=== PATIENT | male | born 1975 | race Caucasian/White ===

== ENCOUNTER 2016-11-09 15:26 | Emergency (ER) | payer OTHER ==
--- NOTE | ~2016-11-09 | CR72 ---
[facility]. [facility] A Service of [facility] & [facility] RADIOLOGY TEXT RESULTS PATIENT: TIKI MORALES LOCATION: SED : 73 UNIT #: [id number] AGE: [address]: Idalia Tejada MD SEX: M ORDER DR: [id number] [place] [id number] E MR#: [id number] Acc #: [id number] NAME: TIKI MORALES : 1975 SEX: M STUDY DATE/TIME: 11/09/2016 16:27 UNIT: SED ROOM: STUDY DESCRIPTION: CR Chest Single View Portable Attending Physician: Idalia Tejada M.D. Ordering Physician: Idalia Tejada M.D. Primary Care Physician: Micah Nugent M.D. MEDICAL IMAGING REPORT This report is preliminary unless electronic signature is present. EXAM Portable chest, INDICATIONS Chest pain beginning today. COMPARISON 05/10/2016 FINDINGS Calcified granuloma in the left lung. No acute infiltrate. Heart size is normal. Visualized osseous structures are unremarkable. IMPRESSION No active disease. Dictated by... Bayron Baumann M.D. THIS IS AN ELECTRONICALLY VERIFIED REPORT Bayron Baumann M.D. at 11/10/2016 7:12 AM Martin TD: 11/09/2016 19:23 JOB #: [id number] MEDICAL IMAGING REPORT Page 1 of 1
--- NOTE | ~2016-11-09 | CT71 ---
[facility] A Service [facility] RADIOLOGY TEXT RESULTS PATIENT: TIKI MORALES LOCATION: SED : 74 UNIT #: [id number] AGE: [address]: Idalia Tejada MD SEX: M ORDER DR: [id number] [place] [id number] E MR#: [id number] Acc #: [id number] NAME: TIKI MORALES : 1975 SEX: M STUDY DATE/TIME: 11/09/2016 16:29 UNIT: SED ROOM: STUDY DESCRIPTION: CT Head Wo Contrast Attending Physician: Idalia Tejada M.D. Ordering Physician: Idalia Tejada M.D. Primary Care Physician: Micah Nugent M.D. MEDICAL IMAGING REPORT This report is preliminary unless electronic signature is present. EXAM Head CT no contrast date 11/26/2016 HISTORY Headache and neck stiffness and head pressure for 1.5 hour. PROCEDURE Axial unenhanced head CT. This CT exam was performed with one or more of the following radiation dose reduction techniques: automatic control, adjustment of mA and/or kV according to patient size, and iterative reconstruction. COMPARISON Prior head CT most recent dated 12/21/2010 FINDINGS The skull base and calvaria are normal. The extracranial soft tissues are normal. Brain parenchymal density is normal and the brain is structurally normal. IMPRESSION Normal negative unenhanced head CT. Dictated by... Jeferson Martinez M.D. THIS IS AN ELECTRONICALLY VERIFIED REPORT Jeferson Martinez M.D. at 11/10/2016 4:10 PM TEV/rnr TD: 11/09/2016 19:35 JOB #: [id number] [facility] A [facility] RADIOLOGY TEXT RESULTS PATIENT: TIKI MORALES LOCATION: SED : 74 UNIT #: [id number] AGE: [address]: Idalia Tejada MD SEX: M ORDER DR: MEDICAL IMAGING REPORT Page 1 of 1
--- NOTE | ~2016-11-09 | EKG ---
PATIENT: TIKI MORALES UNIT #: [id number] Ventricular Rate: 108 BPM Atrial Rate: 108 BPM P-R Interval: 156 ms QRS Duration: 90 ms Q-T Interval: 348 ms QTC Calculation(Bezet): 466 ms P [place]: 31 degrees Calculated R [place]: -10 degrees Calculated T [place]: 30 degrees Diagnosis Line: Sinus tachycardia Diagnosis Line: Minimal voltage criteria for LVH, may be normal Diagnosis Line: variant Diagnosis Line: Borderline ECG Diagnosis Line: When compared with ECG of 22-DEC-2010 05:57, Diagnosis Line: No significant change was found Diagnosis Line: Confirmed by NIKOLAY KIRK MD ([id number]) on Diagnosis Line: 11/10/2016 10:58:21 AM INTERPRETING MD: REAGAN WHEATLEY
[~2016-11-09 15:26] MED LIST: ABILIFY5 MG PO; ACETAMINOPHEN PO; ACTOS PO; ACTOS30 MG PO; ASPIRIN PO; ASPIRIN81 M1 PO; ATENOLOL25 MG PO; ATIVAN PO; CYMBALTA PO; DIAZEPAM PO; INDOCIN25 MG/5 ML PO; LIPITOR PO; LORAZEPAM1 MG PO; MEDROL; METFORMIN HCL500 M1 PO; MIRAPEX PO; MIRAPEX1 MG PO; NITROGYLCERIN SUBLINGUAL; PAXIL PO; PHENERGAN PO; PLAVIX PO; PRAVASTATIN SOD40 MG PO; PREVACID PO; PROSOM1 MG PO; PROSOM2 MG PO; REGLAN10 MG PO; REQUIP1 MG PO; SEROQUEL300 MG PO; TRICOR PO; ZANTAC300 MG PO; ZOCOR80 MG PO
[2016-11-09] MEDS ORDERED: PROZAC PO (15:42)
[2016-11-09] MEDS ORDERED: IMDUR-ER30 M1 PO (15:42)
[2016-11-09] MEDS ORDERED: FLOVENT DISKUS50 MCG (15:42)
[2016-11-09] MEDS ORDERED: LIPITOR PO (15:43)
[2016-11-09] MEDS ORDERED: AMITRIPTYLINE150 MG PO (15:43)
[2016-11-09] MEDS ORDERED: DEXILANT60 MG PO (15:43)
[2016-11-09] MEDS ORDERED: ATIVAN PO (15:43)
[2016-11-09] MEDS ORDERED: MIRAPEX1 MG PO (15:43)
[2016-11-09] MEDS ORDERED: ZESTRIL10 M2 PO (15:44)
[2016-11-09] MEDS ORDERED: XYZAL5 MG PO (15:44)
[2016-11-09] MEDS ORDERED: SEROQUEL XR400 MG PO (15:44)
[2016-11-09] MEDS ORDERED: JANUMET 50-1,01 EACH PO (15:44)
[2016-11-09] MEDS ORDERED: REGLAN10 MG PO (15:45)
[2016-11-09 16:08] LABS: BASOPHIL# 0.1 X10e3 (0-0.3); BASOPHIL% 0.6 % (0-2.5); EOSINOPHIL# 0.1 X10e3 (0-0.7); EOSINOPHIL% 0.7 % (0.0-7.0); HEMATOCRIT 44.4 % (38.0-50.0); HEMOGLOBIN 14.9 gm/dL (13.0-16.0); LYMPHOCYTE# 3.4 X10e3 (1.0-3.5); LYMPHOCYTE% 28.5 % (17.0-45.0); MEAN CORPUSCULAR HGB CONC 33.7 g/dL (30-36); MONOCYTE# 0.7 X10e3 (0-1.0); MONOCYTE% 6.1 % (3.0-12.0); NEUTROPHIL# 7.6 X10e3 (1.5-7.1); NEUTROPHIL% 64.1 % (40-75); PLATELET COUNT 264 X10e3 (140-420); RED BLOOD COUNT 5.34 X10e (3.90-5.60); RED CELL DISTRIBUTION WIDTH 15.1 % (11.0-15.5); WHITE BLOOD COUNT 11.9 X10e3 (4.0-10.5)
[2016-11-09 16:11] LABS: DIFF IND NO
[2016-11-09 16:23] LABS: PROTHROMBIN TIME (PATIENT) 11.2 SECONDS (9.5-12.4)
[2016-11-09 16:26] LABS: POC - CKMB <1.0 ng/mL (0.0-7.9); POC - TROPONIN <0.05 ng/mL (<=0.05)
[2016-11-09 16:33] LABS: ALBUMIN SERUM 4.8 g/dL (3.5-5.0); ALKALINE PHOSPHATASE 75 U/L (32-92); ALT (SGPT) 26 U/L (10-40); AST (SGOT) 18 U/L (10-42); BILIRUBIN,TOTAL 0.2 mg/dL (0.2-2.0); BLOOD UREA NITROGEN 7 mg/dL (9-23); CALCIUM SERUM 9.9 mg/dL (8.4-10.2); CARBON DIOXIDE 24 mmol/L (22-31); CHLORIDE 104 mmol/L (100-111); CREATININE SERUM 0.7 mg/dL (0.6-1.4); GLOM FILT RATE Estimated 116.4 mL/min (>60); GLUCOSE FASTING 112 mg/dL (70-110); POTASSIUM 3.7 mmol/L (3.5-5.1); PROTEIN TOTAL SERUM 7.5 g/dL (6.0-8.3); SODIUM 139 mmol/L (135-145)
[2016-11-09 16:37] LABS: BILIRUBIN, DIRECT <0.1 mg/dL (0.0-0.2); BILIRUBIN,INDIRECT 0.1 mg/dL (0.0-0.9)
[2016-11-09 17:49] LABS: POC - CKMB <1.0 ng/mL (0.0-7.9); POC - TROPONIN <0.05 ng/mL (<=0.05)
== END 2016-11-09 21:04 | disposition home or self-care (01) ==
LOC: SED 15:26
PROVIDERS: Emergency Medicine
DX: R07.9 Chest pain, unspecified (principal); G44.009 Cluster headache syndrome, unspecified, not intractable; E11.9 Type 2 diabetes mellitus without complications; E78.5 Hyperlipidemia, unspecified; I10 Essential (primary) hypertension; Z79.899 Other long term (current) drug therapy
CPT/HCPCS: 36415; 70450; 71010; 80048; 80076; 82553; 84484; 85025; 85610; 85730; 93005; 96374; 96375; 96376; 99285; J1170; J1200; J1885; J2270; J2405

== ENCOUNTER 2016-12-03 16:06 | Emergency (ER) | payer OTHER ==
[~2016-12-03] VITALS: Ht 193 cm; Wt 117.9 kg
--- NOTE | ~2016-12-03 | CT2 ---
[facility] A Service of [facility] RADIOLOGY TEXT RESULTS PATIENT: TIKI MORALES LOCATION: SED : 73 UNIT #: [id number] AGE: [address]: FABIO KIRBY SEX: M ORDER DR: [id number] [place] [id number] E MR#: [id number] Acc #: [id number] NAME: TIKI MORALES : 1975 SEX: M STUDY DATE/TIME: 12/03/2016 17:45 UNIT: SED ROOM: STUDY DESCRIPTION: CT Abd and Pelv W Cont Attending Physician: Fabio Kirby Ordering Physician: Fabio Kirby Primary Care Physician: Micah Nugent M.D. MEDICAL IMAGING REPORT This report is preliminary unless electronic signature is present. EXAM CT abdomen and pelvis with contrast HISTORY Vomiting x1 week. COMPARISON 10/15/2006 FINDINGS Axial images performed through the abdomen and pelvis following IV contrast. Multiplanar reconstructed images reviewed. This CT exam was performed with one or more of the following radiation dose reduction techniques: Automatic exposure control, adjustment of mA and/or kV according to patient size, and iterative reconstruction. ABDOMEN: Small amount of bibasilar atelectasis. Mild fatty infiltration of liver. Spleen appears normal. Gallbladder surgically absent. Pancreas, kidneys and adrenal glands unremarkable. No free air or free fluid. The visualized GI tract appears normal. Appendix surgically absent. PELVIS: Bladder and prostate appear normal. Osseous structures and soft tissues unremarkable. IMPRESSION No acute intraabdominal or intrapelvic pathology. Dictated by... Richmond Baumann M.D. [facility] A Service of [facility] RADIOLOGY TEXT RESULTS PATIENT: TIKI MORALES LOCATION: SED : 73 UNIT #: [id number] AGE: [address]: FABIO KIRBY SEX: M ORDER DR: THIS IS AN ELECTRONICALLY VERIFIED REPORT Richmond Baumann M.D. at 12/03/2016 10:04 PM JAVIER/jasmin TD: 12/03/2016 19:46 JOB #: [id number] MEDICAL IMAGING REPORT Page 1 of 1
[~2016-12-03 16:06] MED LIST changes: +AMITRIPTYLINE150 MG PO; +DEXILANT60 MG PO; +FLOVENT DISKUS50 MCG; +IMDUR-ER30 M1 PO; +JANUMET 50-1,01 EACH PO; +PROZAC PO; +SEROQUEL XR400 MG PO; +XYZAL5 MG PO; +ZESTRIL10 M2 PO
[2016-12-03 16:58] LABS: URINE SOURCE CLEAN CATCH
[2016-12-03 17:00] LABS: URINE APPEARANCE CLEAR; URINE BILIRUBIN NEG (NEG); URINE BLOOD TRACE-INTACT (NEG); URINE COLOR YELLOW; URINE GLUCOSE NEG (NORM); URINE KETONE NEG (NEG); URINE LEUKOCYTE ESTERASE NEG (NEG); URINE NITRATE NEG (NEG); URINE PROTEIN NEG (NEG); URINE UROBILINOGEN 0.2 MG/DL (NORM)
[2016-12-03 17:03] LABS: BASOPHIL# 0.1 X10e3 (0-0.3); BASOPHIL% 0.6 % (0-2.5); DIFF IND NO; EOSINOPHIL# 0.1 X10e3 (0-0.7); EOSINOPHIL% 0.8 % (0.0-7.0); HEMATOCRIT 44.3 % (38.0-50.0); LYMPHOCYTE# 3.3 X10e3 (1.0-3.5); LYMPHOCYTE% 37.2 % (17.0-45.0); MEAN CELL VOLUME 82.8 FL (83-96); MEAN CORPUSCULAR HEMOGLOBIN 28.1 PG (28-34); MEAN CORPUSCULAR HGB CONC 33.9 g/dL (30-36); MEAN PLATELET VOLUME 8.2 FL (6.5-11.5); MICRO INDICATED? YES; MONOCYTE# 0.7 X10e3 (0-1.0); MONOCYTE% 7.4 % (3.0-12.0); NEUTROPHIL# 4.9 X10e3 (1.5-7.1); PLATELET COUNT 243 X10e3 (140-420); RED BLOOD COUNT 5.34 X10e (3.90-5.60)
[2016-12-03 17:05] LABS: CULTURE INDICATED? NO; URINE BACTERIA NEG (NEG); URINE RBC 0-2 /[HPF] (0-2); URINE WBC 0-2 /[HPF] (0-5)
[2016-12-03 17:19] LABS: ALBUMIN SERUM 4.7 g/dL (3.5-5.0); ALKALINE PHOSPHATASE 68 U/L (32-92); ALT (SGPT) 25 U/L (10-40); AST (SGOT) 16 U/L (10-42); BILIRUBIN,TOTAL 0.5 mg/dL (0.2-2.0); BLOOD UREA NITROGEN 9 mg/dL (9-23); BUN/CREATININE RATIO 11.25; CALCIUM SERUM 9.5 mg/dL (8.4-10.2); CARBON DIOXIDE 28 mmol/L (22-31); CHLORIDE 107 mmol/L (100-111); CREATININE SERUM 0.8 mg/dL (0.6-1.4); GLOM FILT RATE Estimated 110.2 mL/min (>60); GLUCOSE FASTING 107 mg/dL (70-110); LIPASE 27 U/L (22-51); POTASSIUM 3.8 mmol/L (3.5-5.1); PROTEIN TOTAL SERUM 7.2 g/dL (6.0-8.3); SODIUM 141 mmol/L (135-145)
[2016-12-03 17:32] LABS: BILIRUBIN, DIRECT <0.1 mg/dL (0.0-0.2); BILIRUBIN,INDIRECT 0.4 mg/dL (0.0-0.9)
== END 2016-12-03 20:36 | disposition home or self-care (01) ==
LOC: SED 16:06
PROVIDERS: Nurse Practitioner
DX: K29.00 Acute gastritis without bleeding (principal); K21.9 Gastro-esophageal reflux disease without esophagitis; E11.9 Type 2 diabetes mellitus without complications; I10 Essential (primary) hypertension; Z86.73 Personal history of transient ischemic attack (TIA), and cerebral infarction without residual deficits; Z87.442 Personal history of urinary calculi; Z90.49 Acquired absence of other specified parts of digestive tract; Z90.89 Acquired absence of other organs; Z79.899 Other long term (current) drug therapy
CPT/HCPCS: 36415; 74177; 80048; 80076; 81003; 83690; 85025; 96365; 96375; 99284; J0780; J1200; J1885; J2405; J2765; Q9967

== ENCOUNTER 2016-12-08 17:05 | Emergency (ER) | payer OTHER ==
--- NOTE | ~2016-12-08 | CT4 ---
[facility] A Service of [facility] RADIOLOGY TEXT RESULTS PATIENT: TIKI MORALES LOCATION: SED : 73 UNIT #: [id number] AGE: [address]: Duncan Hernandez MD SEX: M ORDER DR: [id number] [place] [id number] E MR#: [id number] Acc #: [id number] NAME: TIKI MORALES : 1975 SEX: M STUDY DATE/TIME: 12/08/2016 17:35 UNIT: SED ROOM: STUDY DESCRIPTION: CT Abd and Pelv Wo Cont Attending Physician: Duncan Hernandez M.D. Ordering Physician: Yamil Prieto M.D. Primary Care Physician: Micah Nugent M.D. MEDICAL IMAGING REPORT This report is preliminary unless electronic signature is present. EXAM Abdomen and pelvis CT no contrast 12/08/2016 INDICATIONS 41-year-old male with vomiting for 12 days. Possible bowel obstruction. Gastroparesis. TECHNIQUE Noncontrast CT of the abdomen and pelvis was performed. This CT exam was performed with one or more of the following radiation dose reduction techniques: automatic exposure control, adjustment of mA and/or kV according to patient size, and iterative reconstruction. COMPARISON STUDIES 12/03/2016. FINDINGS Exam markedly degraded by noncontrast technique. Included lung bases are clear. No pleural or pericardial effusion. Aorta demonstrates no aneurysm. The gallbladder is surgically absent. There is probable mild fatty infiltration of the liver. The solid abdominal organs are otherwise unremarkable. No adenopathy. CT PELVIS: Bladder and prostate unremarkable. No drainable fluid collection in the pelvis. Bowel unremarkable. Appendix diminutive but normal. Inguinal canals are unremarkable. No suspicious bone lesion. IMPRESSION 1. Negative noncontrast CT of the abdomen and pelvis. [facility] Service of [facility] RADIOLOGY TEXT RESULTS PATIENT: TIKI MORALES LOCATION: SED : 73 UNIT #: [id number] AGE: [address]: Duncan Hernandez MD SEX: M ORDER DR: unremarkable. Appendix normal. Gallbladder surgically absent. 2. Incidental mild fatty infiltration of the liver. Dictated by... Adi Allen M.D. THIS IS AN ELECTRONICALLY VERIFIED REPORT Adi Allen M.D. at 12/11/2016 7:25 AM BUD/angelica TD: 12/09/2016 12:15 JOB #: [id number] MEDICAL IMAGING REPORT Page 1 of 1
[2016-12-08] MEDS ORDERED: ZOFRAN (17:10)
[2016-12-08] MEDS ORDERED: PHENERGAN (17:10)
[2016-12-08 17:37] LABS: BASOPHIL# 0.1 X10e3 (0-0.3); BASOPHIL% 0.7 % (0-2.5); EOSINOPHIL# 0.1 X10e3 (0-0.7); EOSINOPHIL% 0.7 % (0.0-7.0); HEMATOCRIT 48.7 % (38.0-50.0); HEMOGLOBIN 16.5 gm/dL (13.0-16.0); LYMPHOCYTE# 4.3 X10e3 (1.0-3.5); LYMPHOCYTE% 31.5 % (17.0-45.0); MEAN CELL VOLUME 82.6 FL (83-96); MEAN CORPUSCULAR HGB CONC 33.9 g/dL (30-36); MEAN PLATELET VOLUME 8.3 FL (6.5-11.5); MONOCYTE% 7.1 % (3.0-12.0); NEUTROPHIL# 8.2 X10e3 (1.5-7.1); PLATELET COUNT 287 X10e3 (140-420); RED CELL DISTRIBUTION WIDTH 14.8 % (11.0-15.5); WHITE BLOOD COUNT 13.7 X10e3 (4.0-10.5)
[2016-12-08 17:38] LABS: DIFF IND NO
[2016-12-08 18:11] LABS: ALKALINE PHOSPHATASE 75 U/L (32-92); ALT (SGPT) 38 U/L (10-40); AMYLASE 21 U/L (0-46); AST (SGOT) 27 U/L (10-42); BILIRUBIN,TOTAL 0.4 mg/dL (0.2-2.0); BLOOD UREA NITROGEN 7 mg/dL (9-23); CALCIUM SERUM 9.6 mg/dL (8.4-10.2); CARBON DIOXIDE 22 mmol/L (22-31); CHLORIDE 105 mmol/L (100-111); CREATININE SERUM 0.7 mg/dL (0.6-1.4); GLOM FILT RATE Estimated 116.4 mL/min (>60); GLUCOSE FASTING 113 mg/dL (70-110); LIPASE 25 U/L (22-51); POTASSIUM 3.6 mmol/L (3.5-5.1); PROTEIN TOTAL SERUM 7.8 g/dL (6.0-8.3); SODIUM 138 mmol/L (135-145)
[2016-12-08 18:17] LABS: BILIRUBIN, DIRECT <0.1 mg/dL (0.0-0.2); BILIRUBIN,INDIRECT 0.3 mg/dL (0.0-0.9)
[2016-12-08 19:02] LABS: URINE SOURCE CLEAN CATCH
[2016-12-08 19:08] LABS: URINE APPEARANCE CLEAR; URINE BILIRUBIN NEG (NEG); URINE BLOOD NEG (NEG); URINE COLOR YELLOW; URINE GLUCOSE NEG (NORM); URINE KETONE NEG (NEG); URINE LEUKOCYTE ESTERASE NEG (NEG); URINE NITRATE NEG (NEG); URINE PROTEIN NEG (NEG); URINE UROBILINOGEN 0.2 MG/DL (NORM)
[2016-12-08 19:09] LABS: MICRO INDICATED? NO
== END 2016-12-08 22:27 | disposition left against medical advice (07) ==
LOC: SED 17:05
PROVIDERS: Emergency Medicine
DX: K31.84 Gastroparesis (principal); E78.5 Hyperlipidemia, unspecified; I10 Essential (primary) hypertension; F31.9 Bipolar disorder, unspecified; G43.909 Migraine, unspecified, not intractable, without status migrainosus; Z90.49 Acquired absence of other specified parts of digestive tract; Z98.890 Other specified postprocedural states; Z87.891 Personal history of nicotine dependence; Z79.899 Other long term (current) drug therapy
CPT/HCPCS: 36415; 74176; 80048; 80076; 81003; 82010; 82150; 83690; 85025; 96361; 96374; 96375; 99285; C9113; J0780; J1170; J1200; J2270; J2405; J2550

== ENCOUNTER 2016-12-14 09:03 | Emergency (ER) | payer MEDICARE ==
[~2016-12-14 09:03] MED LIST changes: +PHENERGAN; +ZOFRAN
[2016-12-14 09:57] LABS: BASOPHIL# 0.1 X10e3 (0-0.3); BASOPHIL% 0.4 % (0-2.5); EOSINOPHIL# 0.1 X10e3 (0-0.7); EOSINOPHIL% 0.8 % (0.0-7.0); HEMATOCRIT 49.5 % (38.0-50.0); HEMOGLOBIN 16.5 gm/dL (13.0-16.0); LYMPHOCYTE# 3.5 X10e3 (1.0-3.5); LYMPHOCYTE% 30.1 % (17.0-45.0); MEAN CELL VOLUME 83.2 FL (83-96); MEAN CORPUSCULAR HEMOGLOBIN 27.7 PG (28-34); MEAN CORPUSCULAR HGB CONC 33.3 g/dL (30-36); MEAN PLATELET VOLUME 8.6 FL (6.5-11.5); MONOCYTE# 0.8 X10e3 (0-1.0); MONOCYTE% 6.7 % (3.0-12.0); NEUTROPHIL# 7.2 X10e3 (1.5-7.1); PLATELET COUNT 270 X10e3 (140-420); RED BLOOD COUNT 5.95 X10e (3.90-5.60); WHITE BLOOD COUNT 11.6 X10e3 (4.0-10.5)
[2016-12-14 09:59] LABS: DIFF IND NO
[2016-12-14 10:08] LABS: ALBUMIN SERUM 4.6 g/dL (3.5-5.0); ALKALINE PHOSPHATASE 82 U/L (32-92); ALT (SGPT) 39 U/L (10-40); AST (SGOT) 29 U/L (10-42); BILIRUBIN, DIRECT <0.1 mg/dL (0.0-0.2); BILIRUBIN,INDIRECT 0.3 mg/dL (0.0-0.9); BILIRUBIN,TOTAL 0.4 mg/dL (0.2-2.0); BLOOD UREA NITROGEN 7 mg/dL (9-23); BUN/CREATININE RATIO 11.66; CALCIUM SERUM 9.3 mg/dL (8.4-10.2); CARBON DIOXIDE 23 mmol/L (22-31); CHLORIDE 105 mmol/L (100-111); CREATININE SERUM 0.6 mg/dL (0.6-1.4); GLOM FILT RATE Estimated 124.1 mL/min (>60); GLUCOSE FASTING 145 mg/dL (70-110); LIPASE 28 U/L (22-51); POTASSIUM 3.7 mmol/L (3.5-5.1); PROTEIN TOTAL SERUM 7.6 g/dL (6.0-8.3); SODIUM 140 mmol/L (135-145)
[2016-12-14 10:09] LABS: URINE APPEARANCE CLEAR; URINE BILIRUBIN NEG (NEG); URINE COLOR YELLOW; URINE GLUCOSE NEG (NORM); URINE KETONE TRACE (NEG); URINE LEUKOCYTE ESTERASE NEG (NEG); URINE NITRATE NEG (NEG); URINE SOURCE CLEAN CATCH; URINE SPECIFIC GRAVITY >=1.030 (1.003-1.035); URINE UROBILINOGEN 0.2 MG/DL (NORM)
[2016-12-14 10:10] LABS: MICRO INDICATED? NO; URINE BLOOD NEG (NEG); URINE PROTEIN NEG (NEG)
== END 2016-12-14 15:45 | disposition hospice, home (50) ==
LOC: SED 09:03
PROVIDERS: Emergency Medicine
DX: K31.84 Gastroparesis (principal); F31.9 Bipolar disorder, unspecified; Z90.49 Acquired absence of other specified parts of digestive tract; Z79.899 Other long term (current) drug therapy
CPT/HCPCS: 36415; 80048; 80076; 81003; 83605; 83690; 85025; 96361; 96365; 96375; 96376; 99285; J0780; J1170; J1200; J2060; J2405; J2765

== ENCOUNTER 2017-01-12 15:32 | Emergency (ER) | payer MEDICARE ==
[2017-01-12] MEDS ORDERED: DEXILANT30 MG (15:44)
[2017-01-12] MEDS ORDERED: ISOSORBIDE DINI30 MG PO (15:47)
[2017-01-12 16:17] LABS: URINE SOURCE CLEAN CATCH
[2017-01-12 16:19] LABS: BASOPHIL# 0.1 X10e3 (0-0.3); BASOPHIL% 1.1 % (0-2.5); EOSINOPHIL# 0.1 X10e3 (0-0.7); EOSINOPHIL% 0.7 % (0.0-7.0); HEMATOCRIT 46.9 % (38.0-50.0); LYMPHOCYTE# 3.3 X10e3 (1.0-3.5); MEAN CELL VOLUME 82.8 FL (83-96); MEAN CORPUSCULAR HEMOGLOBIN 28.3 PG (28-34); MEAN CORPUSCULAR HGB CONC 34.2 g/dL (30-36); MEAN PLATELET VOLUME 7.8 FL (6.5-11.5); MONOCYTE# 0.6 X10e3 (0-1.0); MONOCYTE% 6.1 % (3.0-12.0); NEUTROPHIL# 6.4 X10e3 (1.5-7.1); NEUTROPHIL% 61.1 % (40-75); PLATELET COUNT 287 X10e3 (140-420); RED BLOOD COUNT 5.66 X10e (3.90-5.60); RED CELL DISTRIBUTION WIDTH 15.1 % (11.0-15.5); WHITE BLOOD COUNT 10.5 X10e3 (4.0-10.5)
[2017-01-12 16:20] LABS: URINE APPEARANCE CLEAR; URINE BILIRUBIN NEG (NEG); URINE BLOOD NEG (NEG); URINE COLOR YELLOW; URINE GLUCOSE NEG (NORM); URINE KETONE 1+ (NEG); URINE LEUKOCYTE ESTERASE NEG (NEG); URINE NITRATE NEG (NEG); URINE PROTEIN NEG (NEG); URINE SPECIFIC GRAVITY 1.025 (1.003-1.035); URINE UROBILINOGEN 0.2 MG/DL (NORM)
[2017-01-12 16:20] LABS: DIFF IND NO
[2017-01-12 16:21] LABS: MICRO INDICATED? NO
[2017-01-12 16:37] LABS: ALBUMIN SERUM 4.6 g/dL (3.5-5.0); ALKALINE PHOSPHATASE 73 U/L (32-92); ALT (SGPT) 33 U/L (10-40); AST (SGOT) 29 U/L (10-42); BILIRUBIN,TOTAL 0.4 mg/dL (0.2-2.0); BLOOD UREA NITROGEN 9 mg/dL (9-23); CALCIUM SERUM 8.7 mg/dL (8.4-10.2); CARBON DIOXIDE 21 mmol/L (22-31); CHLORIDE 107 mmol/L (100-111); CREATININE SERUM 0.9 mg/dL (0.6-1.4); GLUCOSE FASTING 201 mg/dL (70-110); LIPASE 28 U/L (22-51); POTASSIUM 3.4 mmol/L (3.5-5.1); SODIUM 135 mmol/L (135-145)
[2017-01-12 16:38] LABS: BILIRUBIN, DIRECT <0.1 mg/dL (0.0-0.2); BILIRUBIN,INDIRECT 0.3 mg/dL (0.0-0.9)
== END 2017-01-12 19:36 | disposition home or self-care (01) ==
LOC: SED 15:32
PROVIDERS: Emergency Medicine
DX: E11.43 Type 2 diabetes mellitus with diabetic autonomic (poly)neuropathy (principal); K31.84 Gastroparesis; Z79.4 Long term (current) use of insulin; E78.5 Hyperlipidemia, unspecified; Z79.899 Other long term (current) drug therapy; Z86.79 Personal history of other diseases of the circulatory system
CPT/HCPCS: 36415; 80048; 80076; 81003; 82947; 83690; 85025; 96361; 96374; 96375; 99284; J2405; J2765